=== PATIENT | female | born 1980 | race Caucasian/White ===

== ENCOUNTER → 2018-05-26 | Outpatient (CLI) | payer BC, OTHER ==
[2018-05-26 12:56] LABS: Basophils % (A) 1 %; Eosinophils # (A) 0.3 k/uL (0-0.7); Eosinophils % (A) 4 %; HCT 36.7 % (34.0-46.0); HGB 11.8 gm/dL (11.4-16.0); Hypochromasia Slight; Lymphocytes # (A) 2.3 k/uL (1.0-4.8); Lymphocytes % (A) 37 %; MCH 26.4 pg (25.0-35.0); MCHC 32.2 g/dL (31.0-37.0); MCV 82.1 fL (80.0-100.0); Mean Platelet Volume 7.6; Monocytes # (A) 0.4 k/uL (0-1.0); Monocytes % (A) 7 %; Neutrophils # (A) 3.1 k/uL (1.3-7.7); Neutrophils % (A) 50 %; Platelet Count 238 k/uL (150-450); RBC 4.48 m/uL (3.80-5.40); RDW 15.1 % (11.5-15.5); WBC 6.2 k/uL (3.8-10.6)
== END | disposition home or self-care (01) ==
LOC: LABPAT 11:11
PROVIDERS: ATTEND Obstetrics & Gynecology
DX: Z01.812 Encounter for preprocedural laboratory examination (principal)
CPT/HCPCS: 85025

== ENCOUNTER 2018-06-05 06:16 | Day surgery (SDC) | payer BC, OTHER ==
[2018-05-31 15:23] VITALS: BMI 23.8
[~2018-06-05 06:16] MED LIST: DEXAMETHASONE SOD PHOSPHATE 10 MG/ML 1 ML VIAL IV ONE; LACTATED RINGERS 1,000 ML IV SCH; LIDOCAINE 1% 20 ML VIAL (10MG/ML) FOR IV START INTRADERMA PRN; MIDAZOLAM (PF) 2 MG/2 ML VIAL IV PRN; Pre Op ABX Message 1 EACH MISC MISCELLANE ONE; fentaNYL (PF) 50 MCG/ML 2 ML AMP IV PRN
[2018-06-05] MEDS ORDERED: DEXAMETHASONE SOD PHOSPHATE 10 MG/ML 1 ML VIAL IV ONE (07:11)
[2018-06-05] MEDS ORDERED: ONDANSETRON 4 MG/2 ML VIAL IVP ONE (07:11)
[2018-06-05] MEDS ORDERED: SCOPOLAMINE 1.5MG/72HR PATCH TRANSDERM ONE (07:12)
--- NOTE | 2018-06-05 07:41 | P.HPOB ---
History of Present Illness H&P Date: 06/05/18 Chief Complaint: Menorrhagia and cervical dysplasia Patient is a 37-year-old female with heavy vaginal bleeding. Patient notes that she has heavy vaginal bleeding every month and it is significantly limiting her lifestyle. Ultrasound revealed thickened endometrium and as she is had tube ligation she would like a more permanent solution. Due to the fact she is over the age [age] tissue samples required therefore, she is scheduled for a D&C with hysteroscopy NovaSure. In conjunction with this we are doing a colposcopy due to a mildly abnormal Pap smear. 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 There is no specific treatment required for this at this time therefore we will do conservative colposcopy and then do the D&C and hysteroscopy with NovaSure. Risks/benefits/alternatives to this procedure were discussed with the patient in detail and all questions were answered for her prior to proceeding to the operating room. Past Medical History Additional Past Medical History / Comment(s): heavy menstrual periods History of Any Multi-Drug Resistant Organisms: None Reported Past Surgical History: Tubal Ligation Past Anesthesia/Blood Transfusion Reactions: No Reported Reaction Smoking Status: Former smoker - Past Family History Mother Family Medical History: No Reported History Medications and Allergies Home Medications Medication Instructions Recorded Confirmed Type No Known Home Medications 05/31/18 05/31/18 History Allergies Allergy/AdvReac Type Severity Reaction Status Date / Time Penicillins Allergy Unknown Verified 05/31/18 15:17 Childhood Exam Osteopathic Statement: *. No significant issues noted on an osteopathic structural exam other than those noted in the History and Physical/Consult. Vital Signs Temp Pulse Resp BP Pulse Ox 06/05/18 06:52 98.7 F 61 18 121/70 100 - OBG Physical Exam Breast: both: normal (no masses) Abdomen: bowel sounds normal, no diffuse tenderness, no bruit present, no guarding noted, no hepatomegaly, no splenomegaly, no mass Vulva: both: normal Vagina: normal moisture, no discharge Cervix: no lesion, no discharge Uterus: normal size, normal contour Adnexa: both: normal Anus/Rectum: normal perianal skin, no rectal mass, no hemorrhoids, heme negative
[2018-06-05] MEDS ORDERED: KETOROLAC 30 MG/ML 1 ML VIAL ONE (07:51)
[2018-06-05] MEDS ORDERED: fentaNYL (PF) 50 MCG/ML 2 ML AMP ONE (07:51)
[2018-06-05] MEDS ORDERED: LIDOCAINE 1% INJ 10MG/ML (20 ML MDV) ONE (07:51)
[2018-06-05] MEDS ORDERED: PROPOFOL 10 MG/ML 20 ML VIAL IV ONE (07:51)
[2018-06-05] MEDS ORDERED: MIDAZOLAM 2 MG/2 ML VIAL ONE (07:51)
[2018-06-05] MEDS ORDERED: IODINE/POTASS IOD (LUGOLS) 14 ML BTL TOPICAL ONE (08:03)
[2018-06-05] MEDS ORDERED: LACTATED RINGERS 1,000 ML IV ONE (08:16)
[2018-06-05 08:28] VITALS: TEMP 98
[2018-06-05 09:19] VITALS: RESP 18
[2018-06-05 09:23] VITALS: BP 107/64; PULSE 66
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
== END 2018-06-05 09:43 | disposition home or self-care (01) ==
LOC: OR 06:16
PROVIDERS: ATTEND Obstetrics & Gynecology
DX: N87.9 Dysplasia of cervix uteri, unspecified (principal); N92.0 Excessive and frequent menstruation with regular cycle; N93.8 Other specified abnormal uterine and vaginal bleeding; Z98.51 Tubal ligation status; Z87.891 Personal history of nicotine dependence; Z88.0 Allergy status to penicillin
CPT/HCPCS: 88305; 58563; 57456; J2250; J1100; J2405; J2001; J3010; J1885; J2704

== ENCOUNTER 2018-06-12 12:51 | Emergency (ER) | payer BC, OTHER ==
[2018-06-12 13:01] VITALS: TEMP 98.5
--- NOTE | 2018-06-12 13:33 | ED ---
General Adult HPI - General Chief complaint: Neuro Symptoms/Deficit Stated complaint: dilated pupils Time Seen by Provider: 06/12/18 13:00 Source: patient, RN notes reviewed Mode of arrival: ambulatory Limitations: no limitations - History of Present Illness Initial comments: This is a 37-year-old female who presents to the emergency department complain ing of a dilated left eye since this morning. Patient states she had surgery a week ago and after surgery she had a scopolamine patch placed for a day and she removed it. Patient states since then she's had blurred vision especially when reading up close and this morning she noted her left eye to be dilated compared to the right eye. Patient denies headache patient denies numbness weakness. Pa pablo denies chest pain difficulty breathing or shortness of breath. Patient denies any other symptoms at this time. - Related Data Home Medications Medication Instructions Recorded Confirmed No Known Home Medications 06/12/18 06/12/18 Allergies Allergy/AdvReac Type Severity Reaction Status Date / Time Penicillins Allergy Unknown Verified 06/12/18 13:08 Childhood Review of Systems ROS Statement: Those systems with pertinent positive or pertinent negative responses have been documented in the HPI. ROS Other: All systems not noted in ROS Statement are negative. Past Medical History Past Medical History: No Reported History History of Any Multi-Drug Resistant Organisms: None Reported Additional Past Surgical History / Comment(s): bev Smoking Status: Never smoker Past Alcohol Use History: Unable to Obtain Past Drug Use History: None Reported General Exam - General Exam Comments Initial Comments: GENERAL: Patient is well-developed and well-nourished. Patient is nontoxic and well- hydrated and is in no acute distress. ENT: Neck is soft and supple. No significant lymphadenopathy is noted. Oropharynx is clear. Moist mucous membranes. Neck has full range of motion without eliciting any pain. There is no thyroid enlargement and no masses were felt. EYES: The sclera were anicteric and conjunctiva were pink and moist. Extraocular movements were intact and left pupil is dilated more than the right. Both are reactive to light. Eyelids were unremarkable. PULMONARY: Unlabored respirations. Good breath sounds bilaterally. No audible rales rhonchi or wheezing was noted. CARDIOVASCULAR: There is a regular rate and rhythm without any murmurs gallops or rubs. ABDOMEN: Soft and nontender with normal bowel sounds. No palpable organomegaly was noted. There is no palpable pulsatile mass. SKIN: Skin is clear with no lesions or rashes and otherwise unremarkable. NEUROLOGIC: Patient is alert and oriented x3. Cranial nerves II through XII are grossly intact. Motor and sensory are also intact. Normal speech, volume and content. Symmetrical smile. MUSCULOSKELETAL: Normal extremities with adequate strength and full range of motion. LYMPHATICS: No significant lymphadenopathy is noted PSYCHIATRIC: Normal psychiatric evaluation. Limitations: no limitations Course Vital Signs 06/12/18 12:57 Temperature 98.5 F Pulse Rate 88 Respiratory 16 Rate Blood Pressure 139/84 O2 Sat by Pulse 100 Oximetry Medical Decision Making - Medical Decision Making I spoke with Dr. Isaacs and he did not have any experience with patient having dilated pupils after compounding patches. I spoke with Dr. Eisenberg and he said it was a common occurrence to have people with blurred vision and dilated pupils after having touched is kept on a patch Disposition Clinical Impression: Adverse reaction to drug Disposition: HOME SELF-CARE Condition: Good Additional Instructions: Patient should follow-up with an paint prepper Dr. Eisenberg this week Is patient prescribed a controlled substance at d/c from ED?: No Referrals: None,Stated [Primary Care Provider] - 1-2 days Time of Disposition: 14:43
--- NOTE | 2018-06-12 14:23 | CT ---
EXAMINATION TYPE: CT brain wo con DATE OF EXAM: 06/12/2018 COMPARISON: None HISTORY: 37-year-old female Dilated pupils, pain. TECHNIQUE: Examination was done in axial plane without intravenous contrast. Coronal and sagittal r econstructions performed. CT DLP: 1098.4 mGycm Automated exposure control for dose reduction was used. FINDINGS: There is no evidence of acute intracranial hemorrhage, acute ischemic changes, mass, mass-effect, or extra-axial fluid collection. There is no effacement of cerebral sulci or basal subarachnoid cister ns. There is no hydrocephalus. There is no midline shift. Ramirez-white matter distinction is preserv ed. Empty sella incidentally noted. Mild mucosal thickening seen within the posterior right ethmoid air cells. Mastoid air cells are well pneumatized. Orbits and globes appear intact. IMPRESSION: No acute intracranial abnormality seen. Empty sella which is generally incidental finding. Clinically correlate.
[2018-06-12 15:02] VITALS: BP 135/79; PULSE 86; RESP 18
== END 2018-06-12 14:52 | disposition home or self-care (01) ==
LOC: EC 12:51
DX: H57.04 Mydriasis (principal); H53.8 Other visual disturbances; T44.3X5A Adverse effect of other parasympatholytics [anticholinergics and antimuscarinics] and spasmolytics, initial encounter; Z88.0 Allergy status to penicillin
CPT/HCPCS: 70450; 99284